=== PATIENT | male | born 1995 | race Caucasian/White ===

== ENCOUNTER 2016-10-21 19:01 | Emergency (ER) | payer BC ==
[2016-10-21 19:25] VITALS: BP 142/85; PULSE 94; RESP 14; TEMP 98.2; O2SAT 96
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
== END 2016-10-21 20:10 | disposition home or self-care (01) ==
LOC: CED 19:01
DX: L53.9 Erythematous condition, unspecified (principal); Z72.0 Tobacco use
CPT/HCPCS: 99204-PO; G0463-PO

== ENCOUNTER 2016-10-23 15:46 | Emergency (ER) | payer BC ==
[2016-10-23 16:06] VITALS: BP 124/76; PULSE 96; RESP 16; TEMP 97.7; O2SAT 97
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
== END 2016-10-23 17:32 | disposition home or self-care (01) ==
LOC: CED 15:46
DX: S43.102A Unspecified dislocation of left acromioclavicular joint, initial encounter (principal); Y93.23 Activity, snow (alpine) (downhill) skiing, snowboarding, sledding, tobogganing and snow tubing
CPT/HCPCS: 73030-PO; 99214-PO; G0463-PO

== ENCOUNTER 2017-02-04 20:22 | Emergency (ER) | payer BC ==
[2017-02-04] MEDS ORDERED: NS 1,000 ML IV ONE ×2 (20:48→22:09)
--- NOTE | 2017-02-04 20:48 | CPEKG ---
Heart Rate: 95 RR Interval: 632 P-R Interval: 164 QRSD Interval: 92 QT Interval: 328 QTC Interval: 413 P Kingman: 45 QRS Kingman: 54 T Wave Kingman: 23 EKG Severity - NORMAL ECG - EKG Impression: SINUS RHYTHM Electronically Signed By: Osmel Will 05-Feb-2017 00:12:40
[2017-02-04 21:02] LABS: % IMMATURE GRANULYOCYTES 0.5 % (0.0-1.1); ADD DIFF? NO; ADD MORPH? NO; ADD SCAN? NO; ATYPICAL LYMPHOCYTE FLAG 0 (0-99); FRAGMENT RBC FLAG 0 (0-99); HEMOGLOBIN 16.3 g/dL (13.7-17.5); LEFT SHIFT FLG 10 (0-99); LIPEMIA HEMOLYSIS FLAG 90 (0-99); MEAN CELL HEMOGLOBIN 29.5 pg (27.9-34.1); MEAN PLATELET VOLUME 10.2 fL (8.7-11.7); PLATELET CLUMPS FLAG 0 (0-99); PLATELET COUNT 295 10^3/uL (150-400); RED BLOOD CELL COUNT 5.52 10^6/uL (4.40-6.38); RED CELL DISTRIBUTION WIDTH 12.7 % (11.5-15.2)
[2017-02-04 21:12] LABS: ANION GAP 10 mEq/L (8-16); CALCIUM 10.3 mg/dL (8.5-10.4); CARBON DIOXIDE 30 mEq/l (22-31); CHLORIDE 94 mEq/L (97-110); GLOMERULAR FILTRATION RATE > 60; GLUCOSE 112 mg/dL (70-100); POTASSIUM 3.9 mEq/L (3.5-5.2); SODIUM 134 mEq/L (134-144)
[2017-02-04] MEDS ORDERED: ONDANSETRON 4 MG/2 ML VIAL ONE ×2 (21:26→22:03)
[2017-02-04] MEDS ORDERED: LORazepam 2 MG/ML INJ ONE (21:42)
[2017-02-04] MEDS ORDERED: PANTOPRAZOLE SODIUM 40 MG in NS 100 ML IV ONE (22:26)
--- NOTE | 2017-02-04 22:37 | EDPHY ---
H & P Stated Complaint: vomiting, CP Time Seen by Provider: 02/04/17 20:47 HPI/ROS: CHIEF COMPLAINT: Vomiting, coffee-ground emesis, abdominal pain HISTORY OF PRESENT ILLNESS: The patient presents to the ED with several days of vomiting and reported intermittent coffee-ground emesis. Additionally, the patient complains of generalized abdominal pain. Patient denies history of melena. The patient has taken only occasional NSAIDs. The patient denies significant alcohol use. The patient does report occasional marijuana use. The patient has no prior history of abdominal surgery. The patient does complain of some mild anterior chest pain associated with his vomiting. The patient denies any additional acute complaints. REVIEW OF SYSTEMS: A comprehensive 10 point review of systems is otherwise negative aside from elements mentioned in the history of present illness. Source: Patient Exam Limitations: No limitations - Personal History Current Tetanus/Diphtheria Vaccine: Yes Current Tetanus Diphtheria and Acellular Pertussis (TDAP): Yes Tetanus Vaccine Date: 2012 - Medical/Surgical History Hx Asthma: No Hx Chronic Respiratory Disease: No Hx Diabetes: No Hx Cardiac Disease: No Hx Renal Disease: No Hx Cirrhosis: No Hx Alcoholism: Yes Hx HIV/AIDS: No Hx Splenectomy or Spleen Trauma: No Other PMH: denies - Social History Smoking Status: Current every day smoker - Physical Exam Exam: General Appearance: Alert, mild discomfort Eyes: Pupils equal and round no pallor or injection ENT, Mouth: Mucous membranes moist Respiratory: There are no retractions, lungs are clear to auscultation Cardiovascular: Regular rate and rhythm Gastrointestinal: Minimal epigastric tenderness, mild left lower quadrant tenderness Neurological: A&O, normal motor function, normal sensory exam, normal cranial nerves Skin: Warm and dry, no rashes Musculoskeletal: Neck is supple nontender Extremities: symmetrical, full range of motion Psychiatric: Patient is oriented X 3, there is no agitation Constitutional: Initial Vital Signs Temperature (C) 37 C 02/04/17 20:30 Heart Rate 117 H 02/04/17 20:30 Respiratory Rate 18 02/04/17 20:30 Blood Pressure 158/101 H 02/04/17 20:30 O2 Sat (%) 96 02/04/17 20:30 O2 Delivery Mode Room Air Allergies/Adverse Reactions: Penicillins Allergy (Verified 02/04/17 20:30) Medical Decision Making - Diagnostics EKG Interpretation: EKG: Complete interpretation has been separately recorded in the [facility] archive. Summary impression: Sinus rhythm, no ischemic changes noted Imaging Results: Imaging Impressions Abdomen CT 02/04/17 22:47 Impression: 1. Thickening of the wall of the distal esophagus suggests esophagitis. 2. No gastric abnormality is seen. Results called and discussed with Osmel Will M.D. on 02/04/2017 at 23:47 ED Course/Re-evaluation: The patient presents to the ED with epigastric pain vomiting and hematemesis. The patient was noted to be normotensive upon arrival. The patient did receive IV Ativan, Zofran and morphine. The patient was observed to have several bouts of ongoing coffee-ground emesis. There is no bright red blood or gross hematemesis. The patient did have an IV established. The patient was did have a type and screen. The patient was started on IV Protonix. Given the patient's leukocytosis and epigastric tenderness I did order a CT scan of the abdomen pelvis. We currently have no beds (ICU, telemetry or medical-surgical beds) available at our hospital. I do feel the patient should be transferred for further care. I spoke with Dr. Morris at [facility] who has accepted the patient for transfer to the step-down unit. Differential Diagnosis: Differential diagnosis considered includes upper GI bleed, lower GI bleed, peptic ulcer disease, critical anemia, hypovolemia Critical Care Time: Critical care time exclusive of procedures and exclusive of the PA's time was 65 minutes, performed by myself, Osmel Will MD. The patient presents to the ED with an active upper GI bleed. He has had multiple episodes of hematemesis in the emergency department. The patient was also noted to have leukocytosis. He was taken for an emergent CT scan of the abdomen pelvis. The patient will require admission to a monitored bed for further evaluation of his active upper GI bleed esophagitis. The patient will require transfer to another hospitalized we have no beds available at our facility this evening. - Data Points Laboratory Results: Laboratory Results 02/04/17 20:47 02/04/17 20:47 02/04/17 02/04/17 02/04/17 23:04 20:47 20:47 WBC 18.79 10^3/uL H 10^3/uL (3.80-9.50) RBC 5.52 10^6/uL 10^6/uL (4.40-6.38) Hgb 16.3 g/dL g/dL (13.7-17.5) Hct 48.0 % % (40.0-51.0) MCV 87.0 fL fL (81.5-99.8) MCH 29.5 pg pg (27.9-34.1) MCHC 34.0 g/dL g/dL (32.4-36.7) RDW 12.7 % % (11.5-15.2) Plt Count 295 10^3/uL 10^3/uL (150-400) MPV 10.2 fL fL (8.7-11.7) Neut % (Auto) 84.9 % H % (39.3-74.2) Lymph % (Auto) 8.0 % L % (15.0-45.0) [place] % (Auto) 5.3 % % (4.5-13.0) Eos % (Auto) 1.0 % % (0.6-7.6) Baso % (Auto) 0.3 % % (0.3-1.7) Nucleat RBC Rel Count 0.0 % % (0.0-0.2) Absolute Neuts (auto) 15.95 10^3/uL H 10^3/uL (1.70-6.50) Absolute Lymphs (auto) 1.51 10^3/uL 10^3/uL (1.00-3.00) Absolute Monos (auto) 0.99 10^3/uL H 10^3/uL (0.30-0.80) Absolute Eos (auto) 0.18 10^3/uL 10^3/uL (0.03-0.40) Absolute Basos (auto) 0.06 10^3/uL 10^3/uL (0.02-0.10) Absolute Nucleated RBC 0.00 10^3/uL 10^3/uL (0-0.01) Immature Gran % 0.5 % % (0.0-1.1) Immature Gran # 0.10 10^3/uL 10^3/uL (0.00-0.10) Sodium 134 mEq/L mEq/L (134-144) Potassium 3.9 mEq/L mEq/L (3.5-5.2) Chloride 94 mEq/L L mEq/L (97-110) Carbon Dioxide 30 mEq/l mEq/l (22-31) Anion Gap 10 mEq/L mEq/L (8-16) BUN 19 mg/dL mg/dL (7-23) Creatinine 1.0 mg/dL mg/dL (0.7-1.3) Estimated GFR > 60 Glucose 112 mg/dL H mg/dL (70-100) Calcium 10.3 mg/dL mg/dL (8.5-10.4) Lipase 85.0 IU/L IU/L (23-300) Patient ABO/Rh B POSITIVE Antibody Screen NEGATIVE Medications Given: Discontinued Medications Sodium Chloride (Ns) 1,000 mls @ 0 mls/hr IV ONCE ONE PRN Reason: Wide Open Stop: 02/04/17 20:49 Last Admin: 02/04/17 21:28 Dose: 1,000 mls Sodium Chloride (Ns) 1,000 mls @ 0 mls/hr IV ONCE ONE PRN Reason: Wide Open Stop: 02/04/17 22:10 Last Admin: 02/04/17 22:24 Dose: 1,000 mls Pantoprazole Sodium 40 mg/ (Sodium Chloride) 100 mls @ 200 mls/hr IV ONCE ONE Stop: 02/04/17 22:55 Last Admin: 02/04/17 23:08 Dose: 100 mls Morphine Sulfate (Morphine) 4 mg IVP EDNOW ONE Stop: 02/04/17 22:48 Last Admin: 02/04/17 23:08 Dose: 4 mg Departure - Departure [facility] Clinical Impression: Upper GI bleed, Esophagitis Condition: Fair Referrals: NONE *PRIMARY CARE P,. [Primary Care Provider] - As per Instructions
[2017-02-04] MEDS ORDERED: IOPAMIDOL (ISOVUE-300) 100 ML BTL ONE (22:52)
[2017-02-04 23:42] VITALS: TEMP 98.6
[2017-02-05 01:38] VITALS: BP 146/79; O2SAT 96
[2017-02-05 01:40] VITALS: PULSE 82; RESP 14
== END 2017-02-05 01:39 | disposition short-term general hospital (02) ==
DX: K20.9 Esophagitis, unspecified (principal); K92.2 Gastrointestinal hemorrhage, unspecified; F17.200 Nicotine dependence, unspecified, uncomplicated
CPT/HCPCS: 96374; J2060; J2405; Q9967

== ENCOUNTER 2018-10-17 13:14 | Emergency (ER) | payer OTHER, BC ==
--- NOTE | 2018-10-17 13:31 | EDPHY ---
H & P Source: Patient Exam Limitations: No limitations - Personal History Tetanus Vaccine Date: 2012 - Medical/Surgical History Hx Asthma: No Hx Chronic Respiratory Disease: No Hx Diabetes: No Hx Cardiac Disease: No Hx Renal Disease: No Hx Cirrhosis: No Hx Alcoholism: Yes Hx HIV/AIDS: No Hx Splenectomy or Spleen Trauma: No Other PMH: denies - Social History Smoking Status: Current every day smoker Time Seen by Provider: 10/17/18 13:30 HPI/ROS: HPI: This is a 22-year-old male who presents with Chief Complaint: Left thumb laceration Location: Left thumb Quality: Laceration Duration: Prior to arrival Signs and Symptoms: + bleeding, no radiation, no numbness, no weakness, no tingling, no incontinence, no decreased range of motion, no swelling, no pain, no fever Timing: Acute Severity: Moderate Context: Patient was at work using a performance improvement consultant knife to cut [place] when he accidentally sliced the tip of his left thumb off. He reports that it started to bleed but denies any pain. He reports that he applied direct pressure but continued to bleed. Denies radiculopathy, decreased range of motion, weakness, paresthesias. Last tetanus booster 2012. Modifying Factors: Direct pressure Comment: ROS: A comprehensive 10 system review of systems is otherwise negative aside from elements mentioned in the history of present illness. MEDICAL/SURGICAL/SOCIAL HISTORY: Medical history: Generally healthy. Does not take any regular medications. Surgical history: Denies Social history: Current every day smoker. Employed-works as a performance improvement consultant. CONSTITUTIONAL: Well-developed, well-nourished young adult white male, awake and alert, no obvious distress HEENT: Atraumatic and normocephalic. NECK: supple, no midline tenderness Cardiovascular: Normal S1/S2, regular rate, regular rhythm, without murmur rub or gallop. PULMONARY/CHEST: Symmetrical and nontender. Clear to auscultation bilaterally. Good air movement. No accessory muscle usage. ABDOMEN: Soft, nondistended, nontender EXTREMITIES: 2/2 pulses, strength 5/5, right thumb finger pad shows 2 cm x 3 cm superficial skin avulsion-sparing the nail. No active bleeding. DIP/PIP/ MCP flexion/extension intact with good light touch sensation. no deformities, no clubbing, no cyanosis or edema. NEUROLOGICAL: no focal neuro deficits. GCS 15. Light touch sensation intact. SKIN: Warm and dry, no erythema. no rash. Good capillary refill. (Jazzmine Lazcano) Constitutional: Initial Vital Signs Temperature (C) 36.6 C 10/17/18 13:35 Heart Rate 84 10/17/18 13:35 Respiratory Rate 16 10/17/18 13:35 Blood Pressure 118/75 10/17/18 13:35 O2 Sat (%) 95 10/17/18 13:35 O2 Delivery Mode Room Air Allergies/Adverse Reactions: Penicillins Allergy (Verified 02/04/17 20:30) Home Medications: Medication Instructions Recorded Abilify 10/17/18 Zoloft 50mg (*) 10/17/18 Medical Decision Making ED Course/Re-evaluation: Vital signs reviewed and stable upon arrival. Tetanus up-to-date. Superficial skin avulsion- not a candidate for suture repair Copiously irrigated; Surgifoam, Xeroform, tube gauze applied Monitored for 15 min and good hemostasis achieved. Verbal and written wound care instructions provided. No signs of neurovascular compromise/tenting of skin/compartment syndrome/ extremities and joints examined above and below area of concern and are neurovascularly intact. This patient was seen under the supervision of my secondary supervising physician. I evaluated care for this patient independently. Discussed this patient with Dr. Will who did not see the patient. (Jazzmine Lazcano) Differential Diagnosis: Differential diagnosis includes but is not limited to skin avulsion, laceration , tendon injury, nerve injury. (Jazzmine Lazcano) Other Provider: PHYSICIAN DOCUMENTATION: The patient was evaluated and managed by the Physician Senior Formulation Scientist. My co- signature indicates that I have reviewed this chart and I agree with the findings and plan of care as documented. I am the secondary supervising physician. (Osmel Will) Departure - Departure Disposition: Home, Routine, Self-Care Clinical Impression: Avulsion of skin of finger without complication Qualifiers: Encounter type: initial encounter Qualified Code(s): S61.209A - Unspecified open wound of unspecified finger without damage to nail, initial encounter Condition: Good Instructions: Skin Avulsion (ED), Laceration Without Closure (ED) Additional Instructions: Keep the dressing dry and in place for 48 hours. After 48 hours, you may remove the dressing; wash the site daily with mild soap and water; then pat dry. Apply topical antibiotic ointment and clean sterile dressing daily until fully healed. Take Tylenol 650 mg every 4 hours and/or Ibuprofen 600 mg every 8 hours with food as needed for pain. Return to the ER immediately if you experience redness, red streaks, have fevers /chills, flu like symptoms, limited range of motion, or any other symptoms that concern you. Referrals: [facility],. [Clinic] - As per Instructions
[2018-10-17 13:36] VITALS: BP 118/75
== END 2018-10-17 13:56 | disposition home or self-care (01) ==
DX: S61.012A Laceration without foreign body of left thumb without damage to nail, initial encounter (principal); Y99.0 Civilian activity done for income or pay; W26.0XXA Contact with knife, initial encounter; Y93.G1 Activity, food preparation and clean up